=== PATIENT | female | born 1960 | race Caucasian/White ===

== ENCOUNTER 2018-03-09 10:57 | Outpatient (CLI) | payer OTHER ==
--- NOTE | 2018-03-09 13:22 | BD ---
BONE DENSITOMETRY USING DEXA: HISTORY: Postmenopausal screening for osteoporosis. FINDINGS: Lumbar Spine: BMD (g/cm2) L1 0.914 T-Score: -0.7 Z-Score: 0.5 L2 0.972 T-Score: -0.5 Z-Score: 0.8 L3 0.941 T-Score: -1.3 Z-Score: 0.0 L4 0.916 T-Score: -1.3 Z-Score: 0.1 L1-L4 0.936 T-Score: -1.0 Z-Score: 0.3 Femoral Neck: 0.606 T-Score: -2.2 Z-Score: -1.0 Total Femur: 0.744 T-Score: -1.6 Z-Score: -0.8 Impression: Osteopenia. POS: [facility]
== END 2018-03-09 10:58 | disposition home or self-care (01) ==
LOC: BICMAMMO 10:57
PROVIDERS: ATTEND Internal Medicine Hematology & Oncology
DX: M81.0 Age-related osteoporosis without current pathological fracture (principal); M85.89 Other specified disorders of bone density and structure, multiple sites
CPT/HCPCS: 77080

== ENCOUNTER 2019-03-23 09:47 | Outpatient (CLI) | payer OTHER ==
--- NOTE | 2019-03-23 11:15 | BD ---
EXAM: DEXA bone density examination HISTORY: Osteoporosis without recurrent pathological fracture COMPARISON: March 09, 2018 FINDINGS: L1--bone mineral density 0.815 g/sq cm; T score -1.6. Z score -0.4 L2--bone mineral density 0.845 g/sq cm; T score -1.7; Z score -0.3 L3--bone mineral density 0.839 g/sq cm; T score -2.2; Z score -0.8 L4--bone mineral density 0.822 g/sq cm; T score -2.2, Z score -0.7 Total L1-L4--bone mineral density 0.831 g/sq cm; T score -2.0, Z score -0.6 Left femoral neck--bone mineral density0.589; T score -2.3, Z score -1.1 Total proximal left femur--bone mineral density 0.766; T score -1.4, Z score -0.5 This patient has a 10 year WHO fracture risk of a major osteoporotic fracture of 9.4% and of a hip fr acture of 1.5%. IMPRESSION: Based on the WHO criteria, the patient's bone mineral density is consideredOsteopenic. T he patient is at moderate risk for fracture. The patient's bone mineral density has declined 11.2% from the baseline exam dated March 09, 2018. This is denoted as being in statistically significant .
== END 2019-03-23 09:48 | disposition home or self-care (01) ==
LOC: BICMAMMO 09:47
PROVIDERS: ATTEND Internal Medicine Hematology & Oncology
DX: M81.8 Other osteoporosis without current pathological fracture (principal); C50.112 Malignant neoplasm of central portion of left female breast; M85.80 Other specified disorders of bone density and structure, unspecified site
CPT/HCPCS: 77080

== ENCOUNTER 2022-06-28 13:33 | Outpatient (CLI) | payer OTHER | END 2022-06-28 13:34 | disposition home or self-care (01) | LOC: SCSRAD 13:33 | PROVIDERS: ATTEND Family Medicine | DX: R06.02 Shortness of breath (principal) | CPT/HCPCS: 71046 ==

== ENCOUNTER 2022-07-22 12:26 | Outpatient (CLI) | payer OTHER ==
[~2022-07-22 12:26] MED LIST: Iopamidol 370 76% 100 ML VIAL ONE
== END 2022-07-22 12:27 | disposition home or self-care (01) ==
LOC: CT 12:26
PROVIDERS: ATTEND Internal Medicine Hematology & Oncology
DX: C50.919 Malignant neoplasm of unspecified site of unspecified female breast (principal); C78.00 Secondary malignant neoplasm of unspecified lung; C79.51 Secondary malignant neoplasm of bone; C78.7 Secondary malignant neoplasm of liver and intrahepatic bile duct; C77.1 Secondary and unspecified malignant neoplasm of intrathoracic lymph nodes
CPT/HCPCS: 70470

== ENCOUNTER 2022-07-23 13:33 | Outpatient (CLI) | payer OTHER | END 2022-07-23 13:34 | disposition home or self-care (01) | LOC: SCSMRI 13:33 | PROVIDERS: ATTEND Internal Medicine Hematology & Oncology | DX: C79.51 Secondary malignant neoplasm of bone (principal); C78.00 Secondary malignant neoplasm of unspecified lung; C50.112 Malignant neoplasm of central portion of left female breast; C78.7 Secondary malignant neoplasm of liver and intrahepatic bile duct; M81.8 Other osteoporosis without current pathological fracture; R30.0 Dysuria; M89.9 Disorder of bone, unspecified | CPT/HCPCS: 72157 ==

== ENCOUNTER 2022-07-24 08:13 | Day surgery (SDC) | payer OTHER ==
[2022-07-24 08:41] LABS: INR-International Normal Ratio 0.9; PTT 29.2 sec (22.9-36.1); Prothrombin Time 12.7 sec (12.0-14.7)
[2022-07-24 09:09] VITALS: BP 150/101; TEMP 97.9
== END 2022-07-24 13:32 | disposition home or self-care (01) ==
LOC: CT 08:13
PROVIDERS: ATTEND Internal Medicine Hematology & Oncology
PROC: 0FB23ZX Excision of Left Lobe Liver, Percutaneous Approach, Diagnostic (ICD-10-PCS; principal; 2022-07-24)
DX: C78.7 Secondary malignant neoplasm of liver and intrahepatic bile duct (principal); C77.1 Secondary and unspecified malignant neoplasm of intrathoracic lymph nodes; C78.02 Secondary malignant neoplasm of left lung; C78.01 Secondary malignant neoplasm of right lung; C79.51 Secondary malignant neoplasm of bone; I10 Essential (primary) hypertension; Z90.12 Acquired absence of left breast and nipple; Z85.3 Personal history of malignant neoplasm of breast; Z92.21 Personal history of antineoplastic chemotherapy; Z92.3 Personal history of irradiation; Z88.8 Allergy status to other drugs, medicaments and biological substances; Z79.899 Other long term (current) drug therapy
CPT/HCPCS: 47000; 77002; 85610; 85730; 88307; 88333; 88341; 88342

== ENCOUNTER 2022-07-29 08:46 | Outpatient (CLI) | payer OTHER ==
[~2022-07-29 08:46] MED LIST changes: +FENTANYL 50 MCG/ML 1 ML VIAL ONE; -Iopamidol 370 76% 100 ML VIAL ONE; +Midazolam HCl 2 mg/2 ml Vial ONE; +Sodium Bicarbonate 2.5 MEQ/5 ML VIAL ONE
== END 2022-07-29 08:47 | disposition home or self-care (01) ==
LOC: NM 08:46
PROVIDERS: ATTEND Internal Medicine Hematology & Oncology
DX: C50.112 Malignant neoplasm of central portion of left female breast (principal); C78.00 Secondary malignant neoplasm of unspecified lung; C79.51 Secondary malignant neoplasm of bone; C22.9 Malignant neoplasm of liver, not specified as primary or secondary; R30.0 Dysuria; M81.8 Other osteoporosis without current pathological fracture
CPT/HCPCS: 78306; A9503

== ENCOUNTER 2022-11-29 08:00 | Outpatient (CLI) | payer OTHER | END 2022-11-29 08:01 | disposition home or self-care (01) | LOC: PET 08:00 | PROVIDERS: ATTEND Internal Medicine Hematology & Oncology | DX: C50.112 Malignant neoplasm of central portion of left female breast (principal); C79.51 Secondary malignant neoplasm of bone | CPT/HCPCS: 78815; A9552 ==

== ENCOUNTER → 2023-05-23 | Outpatient (CLI) | payer OTHER | LOC: PET 08:00 | PROVIDERS: ATTEND Internal Medicine Hematology & Oncology | DX: C50.112 Malignant neoplasm of central portion of left female breast (principal); C79.51 Secondary malignant neoplasm of bone; C78.7 Secondary malignant neoplasm of liver and intrahepatic bile duct | CPT/HCPCS: 78815; A9552 ==

== ENCOUNTER 2023-11-18 08:00 | Outpatient (CLI) | payer OTHER | END 2023-11-18 08:01 | LOC: PET 08:00 | PROVIDERS: ATTEND Internal Medicine Hematology & Oncology | DX: C50.112 Malignant neoplasm of central portion of left female breast (principal); C79.51 Secondary malignant neoplasm of bone; K76.9 Liver disease, unspecified | CPT/HCPCS: 78815; A9552 ==

== ENCOUNTER 2024-05-04 11:45 | Outpatient (CLI) | payer OTHER | END 2024-05-04 11:46 | disposition home or self-care (01) | LOC: PET 11:45 | PROVIDERS: ATTEND Internal Medicine Hematology & Oncology | DX: C50.112 Malignant neoplasm of central portion of left female breast (principal); M81.8 Other osteoporosis without current pathological fracture; R30.0 Dysuria; C79.51 Secondary malignant neoplasm of bone; D70.1 Agranulocytosis secondary to cancer chemotherapy; T45.1X5A Adverse effect of antineoplastic and immunosuppressive drugs, initial encounter; D70.8 Other neutropenia | CPT/HCPCS: 78815; A9552 ==

== ENCOUNTER 2024-08-19 09:21 | Outpatient (CLI) | payer OTHER | END 2024-08-19 09:22 | disposition home or self-care (01) | LOC: MRI 09:21 | PROVIDERS: ATTEND Physician Assistant Medical | DX: R74.8 Abnormal levels of other serum enzymes (principal); K74.60 Unspecified cirrhosis of liver; R16.0 Hepatomegaly, not elsewhere classified; R18.8 Other ascites; R93.2 Abnormal findings on diagnostic imaging of liver and biliary tract; K76.89 Other specified diseases of liver | CPT/HCPCS: 74183; 76376 ==

== ENCOUNTER → 2024-11-24 | Day surgery (SDC) | payer MEDICARE, OTHER ==
[~2024-11-24] MED LIST changes: -FENTANYL 50 MCG/ML 1 ML VIAL ONE; +Lidocaine 1% PF 5 ML VIAL ONE; +Lidocaine-Prilocaine 2.5% Cream 5 GM TUBE TOP SCH; -Midazolam HCl 2 mg/2 ml Vial ONE; -Sodium Bicarbonate 2.5 MEQ/5 ML VIAL ONE
[2024-11-24 13:31] LABS: Anion Gap 14 mmol/L (10-20); BUN (Urea Nitrogen) 41 mg/dL (9.8-20.1); Calc. Creatinine Clearance 0 mL/min (70-130); Calcium 8.9 mg/dL (7.8-10.44); Carbon Dioxide 20 mmol/L (23-31); Chloride 98 mmol/L (98-107); Glucose 198 mg/dL (80-115); Potassium 5.1 mmol/L (3.5-5.1); Sodium 127 mmol/L (136-145)
[2024-11-24 13:33] LABS: #Basophils Less than 0.03 10x3/uL (0.0-0.2); #Eosinophils Less than 0.03 10x3/uL (0.0-0.7); #Monocytes 0.88 10x3/uL (0.11-0.59); #Neutrophils 10.42 10x3/uL (1.40-6.50); %Basophils 0.1 % (0.0-1.0); %Eosinophils 0.0 % (0.0-10.0); %Lymphocytes 2.5 % (21.0-51.0); %Monocytes 7.5 % (0.0-10.0); %Neutrophils 89.3 % (42.0-75.0); Hematocrit 26.9 % (36.0-47.0); Hemoglobin 8.9 g/dL (12.0-16.0); Mean Corpuscular Hemoglobin 37.4 pg (27.0-31.0); Mean Corpuscular Volume 113.0 fL (78.0-98.0); Platelet Count 165 10x3/uL (130-400); Red Blood Cell (RBC) Count 2.38 mill/uL (4.20-5.40); White Blood Cell (WBC) Count 11.67 10x3/uL (4.8-10.8)
[2024-11-24 13:35] LABS: INR-International Normal Ratio 1.1; PTT 32.7 sec (22.9-36.1); Prothrombin Time 14.3 sec (12.0-14.7)
[2024-11-24 14:04] LABS: Anisocytosis SLIGHT = 6-15 cells HPF (0-5); Macrocytosis MODERATE=16-30 cells HPF (0-5); Platelet Adequacy Comment Platelets Normal; Polychromasia SLIGHT = 2-3 cells HPF (0-2); Schistocytes SLIGHT = 2-5 cells HPF (0-1)
[2024-11-24] MEDS: Albumin 25% 25 GM (100 mL) BOT IVPB SCH (15:00)
[2024-11-24 16:08] VITALS: BP 84/47
[2024-11-24 17:58] LABS: RBC Count-Automated (BF) 20 /cu.mm; WBC/Nucleated-Auto (BF) 59 /cu.mm
[2024-11-24 18:09] LABS: BF Segmented Neutrophils 4 %; Cell Count Non Hematic 95 %
== END ==
LOC: ULT 12:50
PROVIDERS: ATTEND Internal Medicine Hematology & Oncology
PROC: 0W9G3ZZ Drainage of Peritoneal Cavity, Percutaneous Approach (ICD-10-PCS; principal; 2024-11-24)
DX: K74.60 Unspecified cirrhosis of liver (principal); R18.8 Other ascites; E87.1 Hypo-osmolality and hyponatremia; Z85.3 Personal history of malignant neoplasm of breast; Z90.10 Acquired absence of unspecified breast and nipple
CPT/HCPCS: 49083; 80048; 82042; 84157; 85025; 85610; 85730; 87070; 87205; 89051; P9047; 36415; 85060

== ENCOUNTER 2024-11-27 21:20 | Emergency (ER) | payer MEDICARE, OTHER ==
[2024-11-27 22:32] LABS: Hematocrit 28.3 % (36.0-47.0); Hemoglobin 9.1 g/dL (12.0-16.0); Mean Corpuscular Hemoglobin 37.1 pg (27.0-31.0); Mean Corpuscular Volume 115.5 fL (78.0-98.0); Platelet Count 163 10x3/uL (130-400); Red Blood Cell (RBC) Count 2.45 mill/uL (4.20-5.40); White Blood Cell (WBC) Count 32.74 10x3/uL (4.8-10.8)
[2024-11-27] MEDS ORDERED: Lidocaine 1% (PF) 30 ML VIAL ONE (22:36)
[2024-11-27 22:37] LABS: INR-International Normal Ratio 1.3; Prothrombin Time 16.2 sec (12.0-14.7)
[2024-11-27 22:38] LABS: PTT 28.2 sec (22.9-36.1)
[2024-11-27 22:41] LABS: ALT (SGPT) 62 U/L (Less than 34); AST (SGOT) 49 U/L (11-34); Albumin 2.7 g/dL (3.1-4.5); Alkaline Phosphatase 613 U/L (40-110); Anion Gap 14 mmol/L (10-20); BUN (Urea Nitrogen) 39 mg/dL (9.8-20.1); Bilirubin, Total 4.1 mg/dL (0.3-1.2); CK (CPK) 35 U/L (29-168); Calc. Creatinine Clearance 0 mL/min (70-130); Calcium 8.2 mg/dL (7.8-10.44); Carbon Dioxide 17 mmol/L (23-31); Chloride 99 mmol/L (98-107); Globulin 2.9 g/dL (2.4-3.5); Glucose 149 mg/dL (80-115); Lipase 122 U/L (8-78); Potassium 5.1 mmol/L (3.5-5.1); Sodium 125 mmol/L (136-145)
[2024-11-27 22:56] LABS: Anisocytosis SLIGHT = 6-15 cells HPF (0-5); Macrocytosis SLIGHT = 6-15 cells HPF (0-5); Platelet Adequacy Comment Platelets Normal; Polychromasia SLIGHT = 2-3 cells HPF (0-2)
[2024-11-27 23:09] LABS: Troponin I Less than 0.010 ng/mL (< 0.028)
[2024-11-27 23:40] LABS: RBC Count-Automated (BF) 591 /cu.mm; WBC/Nucleated-Auto (BF) 5841 /cu.mm
[2024-11-27 23:48] LABS: Actual Bicarbonate (HCO3v) 17.7 mEq/L (22-28); Base Excess -6.5 mEq/L (-2.0 to +3.0); Calcium, Ionized (venous) 1.08 mmol/L (1.16-1.32); Chloride (VBG) 96 mmol/L (98-106); Hematocrit-VBG 29 % (36.0-47.0); Hemoglobin (Hb) 9.9 g/dL (11.7-16.1); Potassium (VBG) 4.85 mmol/L (3.70-5.30); Sodium 125 mmol/L (133-146)
[2024-11-28 00:59] LABS: BF Segmented Neutrophils 81 %; Cell Count Non Hematic 19 %
== END 2024-11-28 01:30 | disposition home or self-care (01) ==
LOC: ERS 21:20
DX: R10.9 Unspecified abdominal pain (principal); R18.8 Other ascites; C50.919 Malignant neoplasm of unspecified site of unspecified female breast; Z55.6 Problems related to health literacy
CPT/HCPCS: 36415; 49083; 71045; 80053; 82042; 82140; 82550; 82805; 82945; 83605; 83615; 83690; 84157; 84484; 85025; 85060; 85610; 85730; 86850; 86870; 86900; 86901; 87040; 87070; 87205; 89051; 93005

== ENCOUNTER → 2024-12-01 | Day surgery (SDC) | payer MEDICARE, OTHER ==
[~2024-12-01] MED LIST changes: -Lidocaine 1% PF 5 ML VIAL ONE; +Lidocaine 1% w/Epinephrine 1:100K 20 ML VIAL ONE; -Lidocaine-Prilocaine 2.5% Cream 5 GM TUBE TOP SCH; +Sodium Bicarbonate 2.5 MEQ/5 ML SDV ONE
[2024-12-01 11:39] LABS: Anion Gap 13 mmol/L (10-20); BUN (Urea Nitrogen) 57 mg/dL (9.8-20.1); Calc. Creatinine Clearance 0 mL/min (70-130); Calcium 8.1 mg/dL (7.8-10.44); Carbon Dioxide 19 mmol/L (23-31); Chloride 98 mmol/L (98-107); Glucose 154 mg/dL (80-115); Potassium 5.6 mmol/L (3.5-5.1); Sodium 124 mmol/L (136-145)
== END ==
LOC: ULT 11:01
PROVIDERS: ATTEND Internal Medicine Hematology & Oncology
PROC: 0W9G3ZZ Drainage of Peritoneal Cavity, Percutaneous Approach (ICD-10-PCS; principal; 2024-12-01)
DX: K74.60 Unspecified cirrhosis of liver (principal); R18.8 Other ascites; I10 Essential (primary) hypertension; E87.1 Hypo-osmolality and hyponatremia; Z85.3 Personal history of malignant neoplasm of breast; Z90.12 Acquired absence of left breast and nipple
CPT/HCPCS: 36000; 49083; 80048; P9047; 36415; 83615; 85060; 89051

== ENCOUNTER 2024-12-06 14:08 | Day surgery (SDC) | payer MEDICARE, OTHER ==
[2024-12-06] MEDS ORDERED: Sodium Bicarbonate 2.5 MEQ/5 ML SDV ONE (14:51)
[2024-12-06] MEDS ORDERED: Lidocaine 1% PF 5 ML VIAL ONE (14:51)
[2024-12-06 16:39] LABS: Anion Gap 13 mmol/L (10-20); BUN (Urea Nitrogen) 45 mg/dL (9.8-20.1); Calc. Creatinine Clearance 0 mL/min (70-130); Calcium 7.9 mg/dL (7.8-10.44); Carbon Dioxide 19 mmol/L (23-31); Chloride 95 mmol/L (98-107); Glucose 144 mg/dL (80-115); Potassium 6.4 mmol/L (3.5-5.1); Sodium 121 mmol/L (136-145)
[2024-12-06 20:10] LABS: RBC Count-Automated (BF) 225 /cu.mm; WBC/Nucleated-Auto (BF) 39 /cu.mm
[2024-12-06 20:42] LABS: BF Segmented Neutrophils 55 %; Cell Count Non Hematic 37 %
== END 2024-12-06 18:10 | disposition home or self-care (01) ==
LOC: ULT 14:08
PROVIDERS: ATTEND Internal Medicine Hematology & Oncology
PROC: 0W9G3ZZ Drainage of Peritoneal Cavity, Percutaneous Approach (ICD-10-PCS; principal; 2024-12-06)
DX: K74.60 Unspecified cirrhosis of liver (principal); R18.8 Other ascites; C50.112 Malignant neoplasm of central portion of left female breast; C79.51 Secondary malignant neoplasm of bone; M81.8 Other osteoporosis without current pathological fracture; D70.1 Agranulocytosis secondary to cancer chemotherapy; D70.8 Other neutropenia; I10 Essential (primary) hypertension; Z17.0 Estrogen receptor positive status [ER+]; Z17.21 Progesterone receptor positive status; Z17.31 Human epidermal growth factor receptor 2 positive status; Z79.899 Other long term (current) drug therapy
CPT/HCPCS: 49083; 80048; 89051; P9047; 85060

== ENCOUNTER 2024-12-07 09:05 | Inpatient (IN) | payer MEDICARE, OTHER ==
[2024-12-07 10:36] LABS: #Basophils Less than 0.03 10x3/uL (0.0-0.2); #Eosinophils 0.03 10x3/uL (0.0-0.7); #Monocytes 1.05 10x3/uL (0.11-0.59); #Neutrophils 7.26 10x3/uL (1.40-6.50); %Basophils 0.2 % (0.0-1.0); %Eosinophils 0.3 % (0.0-10.0); %Lymphocytes 6.9 % (21.0-51.0); %Monocytes 11.5 % (0.0-10.0); %Neutrophils 79.6 % (42.0-75.0)
[2024-12-07 10:39] LABS: Hematocrit 18.0 % (36.0-47.0); Hemoglobin 5.9 g/dL (12.0-16.0); Mean Corpuscular Hemoglobin 37.3 pg (27.0-31.0); Mean Corpuscular Volume 113.9 fL (78.0-98.0); Platelet Count 252 10x3/uL (130-400); Red Blood Cell (RBC) Count 1.58 mill/uL (4.20-5.40); White Blood Cell (WBC) Count 9.13 10x3/uL (4.8-10.8)
[2024-12-07 10:42] LABS: INR-International Normal Ratio 1.2; Prothrombin Time 15.8 sec (12.0-14.7)
[2024-12-07 10:53] LABS: ALT (SGPT) 113 U/L (Less than 34); AST (SGOT) 127 U/L (11-34); Albumin 2.8 g/dL (3.1-4.5); Alkaline Phosphatase 1242 U/L (40-110); Anion Gap 11 mmol/L (10-20); BUN (Urea Nitrogen) 47 mg/dL (9.8-20.1); Bilirubin, Total 7.0 mg/dL (0.3-1.2); Calc. Creatinine Clearance 0 mL/min (70-130); Calcium 7.9 mg/dL (7.8-10.44); Carbon Dioxide 20 mmol/L (23-31); Chloride 95 mmol/L (98-107); Globulin 2.3 g/dL (2.4-3.5); Glucose 162 mg/dL (80-115); Magnesium 2.9 mg/dL (1.6-2.6); Potassium 5.3 mmol/L (3.5-5.1); Sodium 121 mmol/L (136-145)
[2024-12-07 11:49] LABS: Macrocytosis SLIGHT = 6-15 cells (100X) (0-5/hpf); Plasma Cells 0 % (0-0); Platelet Adequacy Comment Appears Adequate
[2024-12-07 14:48] VITALS: BMI 19.8
[2024-12-07] MEDS ORDERED: Acetaminophen 325 MG TAB PO PRN (15:16)
[2024-12-07] MEDS ORDERED: Melatonin 3 MG TAB PO PRN (15:16)
[2024-12-07] MEDS ORDERED: Ondansetron PF 4 MG/2 ML Vial IVP PRN (15:16)
[2024-12-07] MEDS ORDERED: Senokot S 8.6-50 MG TAB PO PRN (15:16)
[2024-12-07 16:12] LABS: Osmolality, Serum 275 mOsm/kg (280-301)
[2024-12-07] MEDS: Furosemide 20 MG TAB PO SCH (16:27)
[2024-12-07 16:34] LABS: #Basophils Less than 0.03 10x3/uL (0.0-0.2); #Eosinophils 0.06 10x3/uL (0.0-0.7); #Monocytes 1.15 10x3/uL (0.11-0.59); #Neutrophils 7.03 10x3/uL (1.40-6.50); %Basophils 0.2 % (0.0-1.0); %Eosinophils 0.6 % (0.0-10.0); %Lymphocytes 9.8 % (21.0-51.0); %Monocytes 12.4 % (0.0-10.0); %Neutrophils 75.5 % (42.0-75.0); Hematocrit 22.3 % (36.0-47.0); Hemoglobin 7.3 g/dL (12.0-16.0); Mean Corpuscular Hemoglobin 34.4 pg (27.0-31.0); Mean Corpuscular Volume 105.2 fL (78.0-98.0); Platelet Count 229 10x3/uL (130-400); Red Blood Cell (RBC) Count 2.12 mill/uL (4.20-5.40); White Blood Cell (WBC) Count 9.31 10x3/uL (4.8-10.8)
[2024-12-07 16:54] LABS: Anion Gap 11 mmol/L (10-20); BUN (Urea Nitrogen) 46 mg/dL (9.8-20.1); Calc. Creatinine Clearance 42 mL/min (70-130); Calcium 7.9 mg/dL (7.8-10.44); Carbon Dioxide 19 mmol/L (23-31); Chloride 98 mmol/L (98-107); Glucose 160 mg/dL (80-115); Potassium 5.7 mmol/L (3.5-5.1); Sodium 122 mmol/L (136-145)
[2024-12-07 17:07] LABS: Anisocytosis MODERATE=16-30 cells HPF (0-5); Macrocytosis SLIGHT = 6-15 cells HPF (0-5); Ovalocytes SLIGHT = 2-5 cells HPF (0-1); Platelet Adequacy Comment Platelets Normal; Polychromasia SLIGHT = 2-3 cells HPF (0-2); Schistocytes SLIGHT = 2-5 cells HPF (0-1); Smudge Cells 4.0 %; Toxic Granulation MODERATE
[2024-12-07] MEDS: LOKELMA 10 GM PACKET PO SCH (18:54)
[2024-12-07 21:51] LABS: Hematocrit 26.5 % (36.0-47.0); Hemoglobin 8.8 g/dL (12.0-16.0)
[2024-12-07 22:04] LABS: Sodium 122 mmol/L (136-145)
[2024-12-08] MEDS: Sodium Bicarbonate Tab 325 MG TAB PO SCH (00:02)
[2024-12-08 05:29] LABS: #Basophils 0.03 10x3/uL (0.0-0.2); #Eosinophils 0.05 10x3/uL (0.0-0.7); #Monocytes 1.14 10x3/uL (0.11-0.59); #Neutrophils 6.56 10x3/uL (1.40-6.50); %Basophils 0.3 % (0.0-1.0); %Eosinophils 0.6 % (0.0-10.0); %Lymphocytes 8.6 % (21.0-51.0); %Monocytes 13.0 % (0.0-10.0); %Neutrophils 74.9 % (42.0-75.0); Hematocrit 26.7 % (36.0-47.0); Hemoglobin 8.9 g/dL (12.0-16.0); Mean Corpuscular Hemoglobin 33.1 pg (27.0-31.0); Mean Corpuscular Volume 99.3 fL (78.0-98.0); Platelet Count 196 10x3/uL (130-400); Red Blood Cell (RBC) Count 2.69 mill/uL (4.20-5.40); White Blood Cell (WBC) Count 8.76 10x3/uL (4.8-10.8)
[2024-12-08 05:50] LABS: Anion Gap 11 mmol/L (10-20); BUN (Urea Nitrogen) 46 mg/dL (9.8-20.1); Calc. Creatinine Clearance 56 mL/min (70-130); Calcium 7.8 mg/dL (7.8-10.44); Carbon Dioxide 19 mmol/L (23-31); Chloride 97 mmol/L (98-107); Glucose 136 mg/dL (80-115); Potassium 4.9 mmol/L (3.5-5.1); Sodium 122 mmol/L (136-145)
[2024-12-08] MEDS: Albumin 25% 25 GM (100 mL) BOT IVPB SCH (09:10)
[2024-12-08 10:48] LABS: Hematocrit 25.1 % (36.0-47.0); Hemoglobin 8.5 g/dL (12.0-16.0)
[2024-12-08 11:00] LABS: Sodium 122 mmol/L (136-145)
[2024-12-08] MEDS ORDERED: cefTRIAXone Sodium 2,000 MG in Syringe 0 ML IVPB SCH (11:15)
[2024-12-08 13:15] LABS: Osmolality, Urine 583 mOsm/kg (50-1200)
[2024-12-08] MEDS: cefTRIAXone\\ROCEPHIN 2 GM in Sodium Chloride 0.9% 100 ML IVPB SCH (15:04)
[2024-12-08 15:29] LABS: Hematocrit 26.2 % (36.0-47.0); Hemoglobin 8.9 g/dL (12.0-16.0)
[2024-12-08 15:46] LABS: Sodium 123 mmol/L (136-145)
[2024-12-08 23:14] LABS: Hematocrit 23.6 % (36.0-47.0); Hemoglobin 8.0 g/dL (12.0-16.0)
[2024-12-08 23:30] LABS: Sodium 126 mmol/L (136-145)
[2024-12-09 05:27] LABS: #Basophils Less than 0.03 10x3/uL (0.0-0.2); #Eosinophils 0.07 10x3/uL (0.0-0.7); #Monocytes 0.66 10x3/uL (0.11-0.59); #Neutrophils 5.06 10x3/uL (1.40-6.50); %Basophils 0.2 % (0.0-1.0); %Eosinophils 1.1 % (0.0-10.0); %Lymphocytes 10.4 % (21.0-51.0); %Monocytes 10.0 % (0.0-10.0); %Neutrophils 76.9 % (42.0-75.0); Hematocrit 23.9 % (36.0-47.0); Hemoglobin 8.1 g/dL (12.0-16.0); Mean Corpuscular Hemoglobin 34.3 pg (27.0-31.0); Mean Corpuscular Volume 101.3 fL (78.0-98.0); Platelet Count 149 10x3/uL (130-400); Red Blood Cell (RBC) Count 2.36 mill/uL (4.20-5.40); White Blood Cell (WBC) Count 6.57 10x3/uL (4.8-10.8)
[2024-12-09 05:50] LABS: ALT (SGPT) 97 U/L (Less than 34); AST (SGOT) 84 U/L (11-34); Albumin 3.2 g/dL (3.1-4.5); Alkaline Phosphatase 928 U/L (40-110); Anion Gap 13 mmol/L (10-20); BUN (Urea Nitrogen) 38 mg/dL (9.8-20.1); Bilirubin, Total 6.6 mg/dL (0.3-1.2); Calc. Creatinine Clearance 61 mL/min (70-130); Calcium 7.8 mg/dL (7.8-10.44); Carbon Dioxide 19 mmol/L (23-31); Chloride 99 mmol/L (98-107); Globulin 1.8 g/dL (2.4-3.5); Glucose 183 mg/dL (80-115); Potassium 4.5 mmol/L (3.5-5.1); Sodium 126 mmol/L (136-145)
[2024-12-09] MEDS ORDERED: Sodium Bicarbonate 2.5 MEQ/5 ML SDV ONE (10:36)
[2024-12-09 15:07] LABS: RBC Count-Automated (BF) 78 /cu.mm; WBC/Nucleated-Auto (BF) 88 /cu.mm
[2024-12-09 17:28] LABS: BF Segmented Neutrophils 39 %; Cell Count Non Hematic 50 %
[2024-12-10 04:56] LABS: #Basophils 0.03 10x3/uL (0.0-0.2); #Eosinophils 0.04 10x3/uL (0.0-0.7); #Monocytes 1.05 10x3/uL (0.11-0.59); #Neutrophils 6.34 10x3/uL (1.40-6.50); %Basophils 0.4 % (0.0-1.0); %Eosinophils 0.5 % (0.0-10.0); %Lymphocytes 7.4 % (21.0-51.0); %Monocytes 12.8 % (0.0-10.0); %Neutrophils 77.1 % (42.0-75.0); Hematocrit 25.1 % (36.0-47.0); Hemoglobin 8.6 g/dL (12.0-16.0); Mean Corpuscular Hemoglobin 35.4 pg (27.0-31.0); Mean Corpuscular Volume 103.3 fL (78.0-98.0); Platelet Count 149 10x3/uL (130-400); Red Blood Cell (RBC) Count 2.43 mill/uL (4.20-5.40); White Blood Cell (WBC) Count 8.22 10x3/uL (4.8-10.8)
[2024-12-10 05:12] LABS: ALT (SGPT) 91 U/L (Less than 34); AST (SGOT) 91 U/L (11-34); Albumin 3.0 g/dL (3.1-4.5); Alkaline Phosphatase 908 U/L (40-110); Anion Gap 14 mmol/L (10-20); BUN (Urea Nitrogen) 36 mg/dL (9.8-20.1); Bilirubin, Total 5.1 mg/dL (0.3-1.2); Calc. Creatinine Clearance 62 mL/min (70-130); Calcium 7.8 mg/dL (7.8-10.44); Carbon Dioxide 18 mmol/L (23-31); Chloride 102 mmol/L (98-107); Globulin 1.7 g/dL (2.4-3.5); Glucose 128 mg/dL (80-115); Potassium 4.6 mmol/L (3.5-5.1); Sodium 129 mmol/L (136-145)
[2024-12-10] MEDS: cefTRIAXone\\ROCEPHIN 2 GM in Sodium Chloride 0.9% 100 ML IVPB SCH (15:03)
[2024-12-11 04:54] LABS: #Basophils 0.03 10x3/uL (0.0-0.2); #Eosinophils 0.07 10x3/uL (0.0-0.7); #Monocytes 1.16 10x3/uL (0.11-0.59); #Neutrophils 7.94 10x3/uL (1.40-6.50); %Basophils 0.3 % (0.0-1.0); %Eosinophils 0.7 % (0.0-10.0); %Lymphocytes 6.4 % (21.0-51.0); %Monocytes 11.6 % (0.0-10.0); %Neutrophils 79.8 % (42.0-75.0); Hematocrit 26.3 % (36.0-47.0); Hemoglobin 8.5 g/dL (12.0-16.0); Mean Corpuscular Hemoglobin 34.3 pg (27.0-31.0); Mean Corpuscular Volume 106.0 fL (78.0-98.0); Platelet Count 144 10x3/uL (130-400); Red Blood Cell (RBC) Count 2.48 mill/uL (4.20-5.40); White Blood Cell (WBC) Count 9.96 10x3/uL (4.8-10.8)
[2024-12-11 05:15] LABS: ALT (SGPT) 87 U/L (Less than 34); AST (SGOT) 75 U/L (11-34); Albumin 2.8 g/dL (3.1-4.5); Alkaline Phosphatase 886 U/L (40-110); Anion Gap 8 mmol/L (10-20); BUN (Urea Nitrogen) 36 mg/dL (9.8-20.1); Bilirubin, Total 4.7 mg/dL (0.3-1.2); Calc. Creatinine Clearance 68 mL/min (70-130); Calcium 7.7 mg/dL (7.8-10.44); Carbon Dioxide 21 mmol/L (23-31); Chloride 98 mmol/L (98-107); Globulin 1.9 g/dL (2.4-3.5); Glucose 160 mg/dL (80-115); Potassium 5.3 mmol/L (3.5-5.1); Sodium 122 mmol/L (136-145)
[2024-12-11] MEDS: Furosemide 40 MG TAB PO SCH (15:48)
[2024-12-11] MEDS: Albumin 25% 25 GM (100 mL) BOT IVPB SCH (17:25)
[2024-12-11] MEDS: Heparin 5,000 UNITS/ML VIAL SC SCH (22:09)
[2024-12-12 05:54] LABS: #Basophils 0.03 10x3/uL (0.0-0.2); #Eosinophils 0.09 10x3/uL (0.0-0.7); #Monocytes 0.97 10x3/uL (0.11-0.59); #Neutrophils 6.35 10x3/uL (1.40-6.50); %Basophils 0.4 % (0.0-1.0); %Eosinophils 1.1 % (0.0-10.0); %Lymphocytes 7.8 % (21.0-51.0); %Monocytes 11.9 % (0.0-10.0); %Neutrophils 77.6 % (42.0-75.0); Hematocrit 23.0 % (36.0-47.0); Hemoglobin 7.5 g/dL (12.0-16.0); Mean Corpuscular Hemoglobin 35.0 pg (27.0-31.0); Mean Corpuscular Volume 107.5 fL (78.0-98.0); Platelet Count 129 10x3/uL (130-400); Red Blood Cell (RBC) Count 2.14 mill/uL (4.20-5.40); White Blood Cell (WBC) Count 8.18 10x3/uL (4.8-10.8)
[2024-12-12 05:56] LABS: ALT (SGPT) 72 U/L (Less than 34); AST (SGOT) 63 U/L (11-34); Albumin 3.3 g/dL (3.1-4.5); Alkaline Phosphatase 719 U/L (40-110); Anion Gap 12 mmol/L (10-20); BUN (Urea Nitrogen) 32 mg/dL (9.8-20.1); Bilirubin, Total 4.5 mg/dL (0.3-1.2); Calc. Creatinine Clearance 77 mL/min (70-130); Calcium 7.6 mg/dL (7.8-10.44); Carbon Dioxide 19 mmol/L (23-31); Chloride 101 mmol/L (98-107); Globulin 1.5 g/dL (2.4-3.5); Glucose 152 mg/dL (80-115); Potassium 4.9 mmol/L (3.5-5.1); Sodium 127 mmol/L (136-145)
[2024-12-12 06:24] LABS: Macrocytosis SLIGHT = 6-15 cells HPF (0-5); Nucleated RBC (Manual Ct) 1 % (0); Platelet Adequacy Comment Platelets Decreased; Smudge Cells 2.8 %
[2024-12-12] MEDS ORDERED: Furosemide 40 MG TAB PO SCH (07:30)
[2024-12-12] MEDS: Pantoprazole 40 MG DR.TAB PO SCH (08:51)
[2024-12-12] MEDS: Sodium Ferric Gluconate 250 MG in Sodium Chloride 0.9% 250 ML 250 ML IVPB SCH (16:20)
[2024-12-12] MEDS: Albumin 25% 25 GM (100 mL) BOT IVPB SCH ×2 (19:28→23:32)
[2024-12-13 05:59] LABS: #Basophils 0.03 10x3/uL (0.0-0.2); #Eosinophils 0.06 10x3/uL (0.0-0.7); #Monocytes 0.79 10x3/uL (0.11-0.59); #Neutrophils 5.96 10x3/uL (1.40-6.50); %Basophils 0.4 % (0.0-1.0); %Eosinophils 0.8 % (0.0-10.0); %Lymphocytes 5.9 % (21.0-51.0); %Monocytes 10.8 % (0.0-10.0); %Neutrophils 81.3 % (42.0-75.0); Hematocrit 23.2 % (36.0-47.0); Hemoglobin 7.7 g/dL (12.0-16.0); Mean Corpuscular Hemoglobin 36.0 pg (27.0-31.0); Mean Corpuscular Volume 108.4 fL (78.0-98.0); Platelet Count 108 10x3/uL (130-400); Red Blood Cell (RBC) Count 2.14 mill/uL (4.20-5.40); White Blood Cell (WBC) Count 7.33 10x3/uL (4.8-10.8)
[2024-12-13 06:23] LABS: Anion Gap 12 mmol/L (10-20); BUN (Urea Nitrogen) 36 mg/dL (9.8-20.1); Calc. Creatinine Clearance 76 mL/min (70-130); Calcium 8.2 mg/dL (7.8-10.44); Carbon Dioxide 19 mmol/L (23-31); Chloride 104 mmol/L (98-107); Glucose 122 mg/dL (80-115); Potassium 4.4 mmol/L (3.5-5.1); Sodium 131 mmol/L (136-145)
[2024-12-13] MEDS ORDERED: Lidocaine 1% PF 5 ML VIAL ONE (11:27)
[2024-12-13] MEDS ORDERED: Sodium Bicarbonate 2.5 MEQ/5 ML SDV ONE (11:28)
[2024-12-13] MEDS: Albumin 25% 25 GM (100 mL) BOT IVPB SCH (14:01)
[2024-12-13 15:25] LABS: RBC Count-Automated (BF) 2657 /cu.mm; WBC/Nucleated-Auto (BF) 127 /cu.mm
[2024-12-13 16:07] LABS: BF Segmented Neutrophils 53 %; Cell Count Non Hematic 37 %
[2024-12-14 08:29] LABS: ALT (SGPT) 44 U/L (Less than 34); AST (SGOT) 42 U/L (11-34); Albumin 4.3 g/dL (3.1-4.5); Alkaline Phosphatase 578 U/L (40-110); Anion Gap 12 mmol/L (10-20); BUN (Urea Nitrogen) 35 mg/dL (9.8-20.1); Bilirubin, Total 5.5 mg/dL (0.3-1.2); Calc. Creatinine Clearance 70 mL/min (70-130); Calcium 8.7 mg/dL (7.8-10.44); Carbon Dioxide 21 mmol/L (23-31); Chloride 104 mmol/L (98-107); Globulin 1.3 g/dL (2.4-3.5); Glucose 165 mg/dL (80-115); Potassium 4.4 mmol/L (3.5-5.1); Sodium 133 mmol/L (136-145)
[2024-12-14 08:34] LABS: #Basophils 0.07 10x3/uL (0.0-0.2); #Eosinophils 0.06 10x3/uL (0.0-0.7); #Monocytes 0.78 10x3/uL (0.11-0.59); #Neutrophils 7.22 10x3/uL (1.40-6.50); %Basophils 0.8 % (0.0-1.0); %Eosinophils 0.7 % (0.0-10.0); %Lymphocytes 5.9 % (21.0-51.0); %Monocytes 9.0 % (0.0-10.0); %Neutrophils 82.8 % (42.0-75.0); Hematocrit 25.0 % (36.0-47.0); Hemoglobin 8.2 g/dL (12.0-16.0); Mean Corpuscular Hemoglobin 36.1 pg (27.0-31.0); Mean Corpuscular Volume 110.1 fL (78.0-98.0); Platelet Count 109 10x3/uL (130-400); Red Blood Cell (RBC) Count 2.27 mill/uL (4.20-5.40); White Blood Cell (WBC) Count 8.71 10x3/uL (4.8-10.8)
[2024-12-14 10:43] LABS: Anisocytosis MODERATE=16-30 cells HPF (0-5); Burr Cells SLIGHT = 2-5 cells HPF (0-1); Macrocytosis SLIGHT = 6-15 cells HPF (0-5); Platelet Adequacy Comment Platelets Decreased; Polychromasia SLIGHT = 2-3 cells HPF (0-2)
[2024-12-14 13:50] VITALS: BP 92/55; TEMP 97.9
== END 2024-12-14 13:16 | disposition home or self-care (01) | DRG 432 ==
LOC: ERS 09:05 → 2NO 12:30 → OBSVTOIN 12-08 10:52 → MSONC 12-08 16:37
PROVIDERS: ADMIT Internal Medicine; ATTEND Hospitalist
PROC: 30233N1 Transfusion of Nonautologous Red Blood Cells into Peripheral Vein, Percutaneous Approach (ICD-10-PCS; 2024-12-07)
PROC: 0W9G3ZZ Drainage of Peritoneal Cavity, Percutaneous Approach (ICD-10-PCS; principal; 2024-12-09)
PROC: 30233J1 Transfusion of Nonautologous Serum Albumin into Peripheral Vein, Percutaneous Approach (ICD-10-PCS; 2024-12-09)
PROC: 3E03329 Introduction of Other Anti-infective into Peripheral Vein, Percutaneous Approach (ICD-10-PCS; 2024-12-09)
PROC: 5A09357 Assistance with Respiratory Ventilation, Less than 24 Consecutive Hours, Continuous Positive Airway Pressure (ICD-10-PCS; 2024-12-11)
PROC: 0W9G3ZZ Drainage of Peritoneal Cavity, Percutaneous Approach (ICD-10-PCS; 2024-12-13)
DX: K74.60 Unspecified cirrhosis of liver (principal); D61.810 Antineoplastic chemotherapy induced pancytopenia; K65.2 Spontaneous bacterial peritonitis; E22.2 Syndrome of inappropriate secretion of antidiuretic hormone; C78.7 Secondary malignant neoplasm of liver and intrahepatic bile duct; R18.8 Other ascites; C79.51 Secondary malignant neoplasm of bone; N17.9 Acute kidney failure, unspecified; Z68.1 Body mass index [BMI] 19.9 or less, adult; E87.20 Acidosis, unspecified; E87.5 Hyperkalemia; E86.0 Dehydration; M62.84 Sarcopenia; E83.41 Hypermagnesemia; E88.09 Other disorders of plasma-protein metabolism, not elsewhere classified; K76.0 Fatty (change of) liver, not elsewhere classified; D63.0 Anemia in neoplastic disease; Z98.890 Other specified postprocedural states; Z90.13 Acquired absence of bilateral breasts and nipples; Z79.899 Other long term (current) drug therapy; E86.9 Volume depletion, unspecified; K72.10 Chronic hepatic failure without coma; R63.4 Abnormal weight loss; T45.1X5A Adverse effect of antineoplastic and immunosuppressive drugs, initial encounter; C50.912 Malignant neoplasm of unspecified site of left female breast
CPT/HCPCS: 36415; 36430; 49083; 74183; 80048; 80053; 82040; 82042; 82140; 83735; 83880; 83930; 83935; 84157; 84295; 84300; 84560; 85025; 85060; 85610; 86850; 86900; 86901; 86922; 87070; 87077; 87205; 88112; 88305; 88341; 88342; 89051; 93005; 93306; 96374; G0378; J0696; J2916; J7050; P9016; P9047

== ENCOUNTER 2024-12-16 13:03 | Inpatient (IN) | payer MEDICARE, OTHER ==
[~2024-12-16 13:03] MED LIST changes: +Iopamidol-370 76% 500 ML MDV (1 ML CHARGE) ONE; -Lidocaine 1% w/Epinephrine 1:100K 20 ML VIAL ONE; -Sodium Bicarbonate 2.5 MEQ/5 ML SDV ONE
[2024-12-16 14:20] LABS: #Basophils 0.05 10x3/uL (0.0-0.2); #Eosinophils 0.06 10x3/uL (0.0-0.7); #Monocytes 1.47 10x3/uL (0.11-0.59); #Neutrophils 7.87 10x3/uL (1.40-6.50); %Basophils 0.5 % (0.0-1.0); %Eosinophils 0.6 % (0.0-10.0); %Lymphocytes 6.6 % (21.0-51.0); %Monocytes 14.4 % (0.0-10.0); %Neutrophils 76.9 % (42.0-75.0); Hematocrit 19.8 % (36.0-47.0); Hemoglobin 6.5 g/dL (12.0-16.0); Mean Corpuscular Hemoglobin 36.7 pg (27.0-31.0); Mean Corpuscular Volume 111.9 fL (78.0-98.0); Platelet Count 149 10x3/uL (130-400); Red Blood Cell (RBC) Count 1.77 mill/uL (4.20-5.40); White Blood Cell (WBC) Count 10.22 10x3/uL (4.8-10.8)
[2024-12-16 14:41] LABS: ALT (SGPT) 38 U/L (Less than 34); AST (SGOT) 44 U/L (11-34); Albumin 3.8 g/dL (3.1-4.5); Alkaline Phosphatase 534 U/L (40-110); Anion Gap 13 mmol/L (10-20); BUN (Urea Nitrogen) 67 mg/dL (9.8-20.1); Bilirubin, Total 6.2 mg/dL (0.3-1.2); Calc. Creatinine Clearance 0 mL/min (70-130); Calcium 8.7 mg/dL (7.8-10.44); Carbon Dioxide 19 mmol/L (23-31); Chloride 100 mmol/L (98-107); Globulin 1.4 g/dL (2.4-3.5); Glucose 122 mg/dL (80-115); Magnesium 2.7 mg/dL (1.6-2.6); Potassium 7.0 mmol/L (3.5-5.1); Sodium 125 mmol/L (136-145)
[2024-12-16 15:47] LABS: Anisocytosis MODERATE=16-30 cells HPF (0-5); Burr Cells MODERATE= 6-15 cells HPF (0-1); Macrocytosis SLIGHT = 6-15 cells HPF (0-5); Ovalocytes SLIGHT = 2-5 cells HPF (0-1); Platelet Adequacy Comment Platelets Normal; Polychromasia MODERATE = 3-4 cells HPF (0-2); Schistocytes SLIGHT = 2-5 cells HPF (0-1)
[2024-12-16 16:24] LABS: Anion Gap 12 mmol/L (10-20); BUN (Urea Nitrogen) 66 mg/dL (9.8-20.1); Calc. Creatinine Clearance 0 mL/min (70-130); Calcium 8.4 mg/dL (7.8-10.44); Carbon Dioxide 19 mmol/L (23-31); Chloride 102 mmol/L (98-107); Glucose 162 mg/dL (80-115); Potassium 7.3 mmol/L (3.5-5.1); Sodium 126 mmol/L (136-145)
[2024-12-16] MEDS ORDERED: CALCIUM GLUC 1 GM/NS 50 ML IV Bag ONE (16:30)
[2024-12-16] MEDS ORDERED: Pantoprazole 40 MG VIAL ONE (16:30)
[2024-12-16 17:19] LABS: INR-International Normal Ratio 1.5; PTT 25.2 sec (22.9-36.1); Prothrombin Time 18.5 sec (12.0-14.7)
[2024-12-16] MEDS ORDERED: Dextrose 50% Abboject 50 ML SYRINGE ONE (17:54)
[2024-12-16 18:09] LABS: Bilirubin, Direct 3.6 mg/dL (0.1-0.3); Bilirubin, Total 6.4 mg/dL (0.3-1.2); Iron Binding Capacity, Total 125 mcg/dL (265-497)
[2024-12-16] MEDS ORDERED: Sodium Polystyrene Sulfonate 15 GM (60 mL) BOT ONE (18:21)
[2024-12-16] MEDS ORDERED: LOKELMA 10 GM PACKET PO SCH (18:30)
[2024-12-16 18:44] LABS: Iron 80 ug/dL (50-170); Iron Binding Capacity, Total 109 mcg/dL (265-497); Transferrin, Serum 87 mg/dL (173-360)
[2024-12-16] MEDS: Pantoprazole 40 MG VIAL IVP SCH (22:46)
[2024-12-16] MEDS: Sodium Bicarbonate Tab 325 MG TAB PO SCH (23:08)
[2024-12-16] MEDS: cefTRIAXone\\ROCEPHIN 1 GM in Sodium Chloride 0.9% 100 ML IVPB SCH (23:08)
[2024-12-16 23:25] LABS: Hematocrit 23.3 % (36.0-47.0); Hemoglobin 7.7 g/dL (12.0-16.0)
[2024-12-16 23:40] LABS: Anion Gap 13 mmol/L (10-20); BUN (Urea Nitrogen) 62 mg/dL (9.8-20.1); Calc. Creatinine Clearance 23 mL/min (70-130); Calcium 8.4 mg/dL (7.8-10.44); Carbon Dioxide 16 mmol/L (23-31); Chloride 105 mmol/L (98-107); Glucose 192 mg/dL (80-115); Potassium 4.8 mmol/L (3.5-5.1); Sodium 129 mmol/L (136-145)
[2024-12-17] MEDS: Octreotide Acetate 1,250 MCG in Sodium Chloride 0.9% 250 ML 250 ML IVPB SCH (00:12)
[2024-12-17 04:19] LABS: #Basophils 0.05 10x3/uL (0.0-0.2); #Eosinophils 0.12 10x3/uL (0.0-0.7); #Monocytes 1.07 10x3/uL (0.11-0.59); #Neutrophils 7.83 10x3/uL (1.40-6.50); %Basophils 0.5 % (0.0-1.0); %Eosinophils 1.2 % (0.0-10.0); %Lymphocytes 8.2 % (21.0-51.0); %Monocytes 10.7 % (0.0-10.0); %Neutrophils 78.1 % (42.0-75.0); Hematocrit 21.5 % (36.0-47.0); Hemoglobin 7.1 g/dL (12.0-16.0); Mean Corpuscular Hemoglobin 35.3 pg (27.0-31.0); Mean Corpuscular Volume 107.0 fL (78.0-98.0); Platelet Count 140 10x3/uL (130-400); Red Blood Cell (RBC) Count 2.01 mill/uL (4.20-5.40); White Blood Cell (WBC) Count 10.02 10x3/uL (4.8-10.8)
[2024-12-17 04:38] LABS: ALT (SGPT) 44 U/L (Less than 34); AST (SGOT) 66 U/L (11-34); Albumin 3.1 g/dL (3.1-4.5); Alkaline Phosphatase 564 U/L (40-110); Anion Gap 11 mmol/L (10-20); BUN (Urea Nitrogen) 62 mg/dL (9.8-20.1); Bilirubin, Total 9.1 mg/dL (0.3-1.2); Calc. Creatinine Clearance 22 mL/min (70-130); Calcium 8.1 mg/dL (7.8-10.44); Carbon Dioxide 20 mmol/L (23-31); Chloride 102 mmol/L (98-107); Globulin 1.4 g/dL (2.4-3.5); Glucose 185 mg/dL (80-115); Magnesium 2.3 mg/dL (1.6-2.6); Potassium 4.8 mmol/L (3.5-5.1); Sodium 128 mmol/L (136-145)
[2024-12-17 08:05] VITALS: BMI 16.9
[2024-12-17] MEDS ORDERED: PROPOFOL 20 ML ONE (08:45)
[2024-12-17] MEDS ORDERED: Ketamine In 0.9 % NaCl 50 MG/5 ML SYRINGE ONE (09:15)
[2024-12-17] MEDS: Albumin 25% 25 GM (100 mL) BOT IVPB SCH ×2 (09:30→16:49)
[2024-12-17 11:05] LABS: Hematocrit 27.6 % (36.0-47.0); Hemoglobin 9.2 g/dL (12.0-16.0)
[2024-12-17 14:08] VITALS: BMI 16.9
[2024-12-17] MEDS: Ondansetron PF 4 MG/2 ML Vial IVP PRN (16:52)
[2024-12-17] MEDS: PNEUMOC 20-VAL CONJ-DIP CRM/PF 0.5 ML SYRINGE IM ONE (17:10)
[2024-12-17] MEDS: Pantoprazole 40 MG VIAL IVP SCH (21:22)
[2024-12-17] MEDS: cefTRIAXone\\ROCEPHIN 1 GM in Sodium Chloride 0.9% 100 ML IVPB SCH (21:23)
[2024-12-18 08:11] LABS: ALT (SGPT) 30 U/L (Less than 34); AST (SGOT) 37 U/L (11-34); Albumin 3.4 g/dL (3.1-4.5); Alkaline Phosphatase 377 U/L (40-110); Anion Gap 13 mmol/L (10-20); BUN (Urea Nitrogen) 48 mg/dL (9.8-20.1); Bilirubin, Total 8.7 mg/dL (0.3-1.2); Calc. Creatinine Clearance 59 mL/min (70-130); Calcium 8.1 mg/dL (7.8-10.44); Carbon Dioxide 19 mmol/L (23-31); Chloride 104 mmol/L (98-107); Globulin 1.5 g/dL (2.4-3.5); Glucose 129 mg/dL (80-115); Potassium 4.3 mmol/L (3.5-5.1); Sodium 132 mmol/L (136-145)
[2024-12-18 08:19] LABS: Anisocytosis MARKED = >30 cells HPF (0-5); Burr Cells MODERATE= 6-15 cells HPF (0-1); Macrocytosis MODERATE=16-30 cells HPF (0-5); Ovalocytes SLIGHT = 2-5 cells HPF (0-1); Platelet Adequacy Comment Platelets Normal; Poikilocytosis SLIGHT = 6-15 cells HPF (0-5); Polychromasia SLIGHT = 2-3 cells HPF (0-2)
[2024-12-18 08:21] LABS: #Basophils 0.07 10x3/uL (0.0-0.2); #Eosinophils 0.21 10x3/uL (0.0-0.7); #Monocytes 1.06 10x3/uL (0.11-0.59); #Neutrophils 10.01 10x3/uL (1.40-6.50); %Basophils 0.6 % (0.0-1.0); %Eosinophils 1.7 % (0.0-10.0); %Lymphocytes 6.7 % (21.0-51.0); %Monocytes 8.6 % (0.0-10.0); %Neutrophils 81.2 % (42.0-75.0); Hematocrit 25.9 % (36.0-47.0); Hemoglobin 8.7 g/dL (12.0-16.0); Mean Corpuscular Hemoglobin 33.2 pg (27.0-31.0); Mean Corpuscular Volume 98.9 fL (78.0-98.0); Platelet Count 124 10x3/uL (130-400); Red Blood Cell (RBC) Count 2.62 mill/uL (4.20-5.40); White Blood Cell (WBC) Count 12.33 10x3/uL (4.8-10.8)
[2024-12-19 04:18] LABS: #Basophils 0.09 10x3/uL (0.0-0.2); #Eosinophils 0.23 10x3/uL (0.0-0.7); #Monocytes 1.17 10x3/uL (0.11-0.59); #Neutrophils 8.90 10x3/uL (1.40-6.50); %Basophils 0.8 % (0.0-1.0); %Eosinophils 2.0 % (0.0-10.0); %Lymphocytes 6.4 % (21.0-51.0); %Monocytes 10.4 % (0.0-10.0); %Neutrophils 79.3 % (42.0-75.0); Hematocrit 28.9 % (36.0-47.0); Hemoglobin 9.5 g/dL (12.0-16.0); Mean Corpuscular Hemoglobin 32.9 pg (27.0-31.0); Mean Corpuscular Volume 100.0 fL (78.0-98.0); Platelet Count 142 10x3/uL (130-400); Red Blood Cell (RBC) Count 2.89 mill/uL (4.20-5.40); White Blood Cell (WBC) Count 11.23 10x3/uL (4.8-10.8)
[2024-12-19 04:34] LABS: ALT (SGPT) 25 U/L (Less than 34); AST (SGOT) 21 U/L (11-34); Albumin 3.1 g/dL (3.1-4.5); Alkaline Phosphatase 355 U/L (40-110); Anion Gap 11 mmol/L (10-20); BUN (Urea Nitrogen) 46 mg/dL (9.8-20.1); Bilirubin, Total 6.6 mg/dL (0.3-1.2); Calc. Creatinine Clearance 55 mL/min (70-130); Calcium 8.1 mg/dL (7.8-10.44); Carbon Dioxide 21 mmol/L (23-31); Chloride 103 mmol/L (98-107); Globulin 1.7 g/dL (2.4-3.5); Glucose 133 mg/dL (80-115); Potassium 4.0 mmol/L (3.5-5.1); Sodium 131 mmol/L (136-145)
[2024-12-19] MEDS: Phenol 177 ML BOT PO PRN (16:57)
[2024-12-20 05:00] LABS: #Basophils 0.08 10x3/uL (0.0-0.2); #Eosinophils 0.25 10x3/uL (0.0-0.7); #Monocytes 1.34 10x3/uL (0.11-0.59); #Neutrophils 8.69 10x3/uL (1.40-6.50); %Basophils 0.7 % (0.0-1.0); %Eosinophils 2.2 % (0.0-10.0); %Lymphocytes 6.9 % (21.0-51.0); %Monocytes 11.9 % (0.0-10.0); %Neutrophils 77.0 % (42.0-75.0); Hematocrit 30.3 % (36.0-47.0); Hemoglobin 9.8 g/dL (12.0-16.0); Mean Corpuscular Hemoglobin 33.4 pg (27.0-31.0); Mean Corpuscular Volume 103.4 fL (78.0-98.0); Platelet Count 165 10x3/uL (130-400); Red Blood Cell (RBC) Count 2.93 mill/uL (4.20-5.40); White Blood Cell (WBC) Count 11.29 10x3/uL (4.8-10.8)
[2024-12-20 05:09] LABS: ALT (SGPT) 21 U/L (Less than 34); AST (SGOT) 23 U/L (11-34); Albumin 3.0 g/dL (3.1-4.5); Alkaline Phosphatase 384 U/L (40-110); Anion Gap 13 mmol/L (10-20); BUN (Urea Nitrogen) 44 mg/dL (9.8-20.1); Bilirubin, Total 6.0 mg/dL (0.3-1.2); Calc. Creatinine Clearance 58 mL/min (70-130); Calcium 7.9 mg/dL (7.8-10.44); Carbon Dioxide 20 mmol/L (23-31); Chloride 103 mmol/L (98-107); Globulin 1.8 g/dL (2.4-3.5); Glucose 124 mg/dL (80-115); Potassium 4.4 mmol/L (3.5-5.1); Sodium 132 mmol/L (136-145)
[2024-12-20] MEDS: Pantoprazole 40 MG DR.TAB PO SCH (09:17)
[2024-12-20] MEDS ORDERED: Lidocaine 1% PF 5 ML VIAL ONE (10:41)
[2024-12-20] MEDS ORDERED: Lidocaine 1% w/Epinephrine 1:100K 20 ML VIAL ONE (10:42)
[2024-12-20] MEDS ORDERED: Sodium Bicarbonate 2.5 MEQ/5 ML SDV ONE (10:42)
[2024-12-21] MEDS: Nadolol 40 MG TAB PO SCH (09:19)
[2024-12-21] MEDS ORDERED: Senokot S 8.6-50 MG TAB PO PRN (14:36)
[2024-12-21] MEDS: cefTRIAXone (ROCEPHIN) 1 GM VIAL ONE (21:29)
[2024-12-23 04:42] LABS: #Basophils 0.10 10x3/uL (0.0-0.2); #Eosinophils 0.27 10x3/uL (0.0-0.7); #Monocytes 1.39 10x3/uL (0.11-0.59); #Neutrophils 8.51 10x3/uL (1.40-6.50); %Basophils 0.9 % (0.0-1.0); %Eosinophils 2.4 % (0.0-10.0); %Lymphocytes 8.0 % (21.0-51.0); %Monocytes 12.2 % (0.0-10.0); %Neutrophils 74.5 % (42.0-75.0); Hematocrit 32.1 % (36.0-47.0); Hemoglobin 10.4 g/dL (12.0-16.0); Mean Corpuscular Hemoglobin 33.9 pg (27.0-31.0); Mean Corpuscular Volume 104.6 fL (78.0-98.0); Platelet Count 311 10x3/uL (130-400); Red Blood Cell (RBC) Count 3.07 mill/uL (4.20-5.40); White Blood Cell (WBC) Count 11.41 10x3/uL (4.8-10.8)
[2024-12-23 04:53] LABS: Anion Gap 12 mmol/L (10-20); BUN (Urea Nitrogen) 36 mg/dL (9.8-20.1); Calc. Creatinine Clearance 46 mL/min (70-130); Calcium 7.7 mg/dL (7.8-10.44); Carbon Dioxide 20 mmol/L (23-31); Chloride 101 mmol/L (98-107); Glucose 148 mg/dL (80-115); Potassium 5.0 mmol/L (3.5-5.1); Sodium 128 mmol/L (136-145)
[2024-12-23] MEDS ORDERED: Lidocaine 1% PF 5 ML VIAL ONE (09:20)
[2024-12-23] MEDS ORDERED: Sodium Bicarbonate 2.5 MEQ/5 ML SDV ONE (09:21)
[2024-12-23] MEDS ORDERED: Lidocaine-Prilocaine 2.5% Cream 5 GM TUBE ONE (09:23)
[2024-12-23 11:35] LABS: RBC Count-Automated (BF) 0 /cu.mm; WBC/Nucleated-Auto (BF) 206 /cu.mm
[2024-12-23 14:05] LABS: BF Segmented Neutrophils 14 %; Cell Count Non Hematic 68 %
[2024-12-28 04:47] LABS: Anion Gap 12 mmol/L (10-20); Anisocytosis SLIGHT = 6-15 cells HPF (0-5); BUN (Urea Nitrogen) 36 mg/dL (9.8-20.1); Calc. Creatinine Clearance 38 mL/min (70-130); Calcium 8.4 mg/dL (7.8-10.44); Carbon Dioxide 20 mmol/L (23-31); Chloride 97 mmol/L (98-107); Glucose 140 mg/dL (80-115); Macrocytosis SLIGHT = 6-15 cells HPF (0-5); Platelet Adequacy Comment Platelets Normal; Polychromasia SLIGHT = 2-3 cells HPF (0-2); Potassium 5.6 mmol/L (3.5-5.1); Sodium 123 mmol/L (136-145)
[2024-12-28 04:49] LABS: Hematocrit 30.4 % (36.0-47.0); Hemoglobin 10.3 g/dL (12.0-16.0); Mean Corpuscular Hemoglobin 34.7 pg (27.0-31.0); Mean Corpuscular Volume 102.4 fL (78.0-98.0); Platelet Count 355 10x3/uL (130-400); Red Blood Cell (RBC) Count 2.97 mill/uL (4.20-5.40); White Blood Cell (WBC) Count 16.99 10x3/uL (4.8-10.8)
[2024-12-28] MEDS ORDERED: Lidocaine 1% PF 5 ML VIAL ONE (10:02)
[2024-12-28] MEDS ORDERED: Lidocaine 1% w/Epinephrine 1:100K 20 ML VIAL ONE (10:02)
[2024-12-28] MEDS ORDERED: Sodium Bicarbonate 2.5 MEQ/5 ML SDV ONE (10:02)
[2024-12-28] MEDS ORDERED: Ondansetron PF 4 MG/2 ML Vial ONE (10:28)
[2024-12-28] MEDS: LOKELMA 10 GM PACKET PO SCH (12:54)
[2024-12-28] MEDS: Ciprofloxacin Lactate/D5W 400 MG in Premix 1 BAG IVPB SCH (13:02)
[2024-12-28 13:19] VITALS: TEMP 97.8
[2024-12-28 14:03] LABS: Potassium 5.6 mmol/L (3.5-5.1)
[2024-12-28 17:13] VITALS: BP 99/65
[2024-12-29] MEDS ORDERED: LOKELMA 5 GM PACKET PO SCH (09:00)
== END 2024-12-28 18:45 | disposition hospice, home (50) | DRG 377 ==
LOC: ERS 13:03 → PCU 18:27
PROVIDERS: ADMIT Student in an Organized Health Care Education/Training Program; ATTEND Hospitalist
PROC: 30233N1 Transfusion of Nonautologous Red Blood Cells into Peripheral Vein, Percutaneous Approach (ICD-10-PCS; 2024-12-16)
PROC: 06L38CZ Occlusion of Esophageal Vein with Extraluminal Device, Via Natural or Artificial Opening Endoscopic (ICD-10-PCS; principal; 2024-12-17)
PROC: 3E03329 Introduction of Other Anti-infective into Peripheral Vein, Percutaneous Approach (ICD-10-PCS; 2024-12-17)
PROC: 30233J1 Transfusion of Nonautologous Serum Albumin into Peripheral Vein, Percutaneous Approach (ICD-10-PCS; 2024-12-17)
PROC: 3E0234Z Introduction of Serum, Toxoid and Vaccine into Muscle, Percutaneous Approach (ICD-10-PCS; 2024-12-17)
PROC: 0W9G3ZZ Drainage of Peritoneal Cavity, Percutaneous Approach (ICD-10-PCS; 2024-12-20)
PROC: 0W9G3ZZ Drainage of Peritoneal Cavity, Percutaneous Approach (ICD-10-PCS; 2024-12-23)
PROC: 0W9G30Z Drainage of Peritoneal Cavity with Drainage Device, Percutaneous Approach (ICD-10-PCS; 2024-12-28)
DX: K92.2 Gastrointestinal hemorrhage, unspecified (principal); E43 Unspecified severe protein-calorie malnutrition; C78.7 Secondary malignant neoplasm of liver and intrahepatic bile duct; E22.2 Syndrome of inappropriate secretion of antidiuretic hormone; E87.20 Acidosis, unspecified; E87.3 Alkalosis; R18.8 Other ascites; C79.51 Secondary malignant neoplasm of bone; K76.6 Portal hypertension; Z68.1 Body mass index [BMI] 19.9 or less, adult; R64 Cachexia; Z66 Do not resuscitate; Z23 Encounter for immunization; I85.10 Secondary esophageal varices without bleeding; E87.5 Hyperkalemia; K74.60 Unspecified cirrhosis of liver; I95.9 Hypotension, unspecified; C50.911 Malignant neoplasm of unspecified site of right female breast; D63.0 Anemia in neoplastic disease; M62.50 Muscle wasting and atrophy, not elsewhere classified, unspecified site; K31.89 Other diseases of stomach and duodenum; Z90.11 Acquired absence of right breast and nipple; Z79.899 Other long term (current) drug therapy; Z98.890 Other specified postprocedural states; Z90.12 Acquired absence of left breast and nipple; Z83.3 Family history of diabetes mellitus; Z82.49 Family history of ischemic heart disease and other diseases of the circulatory system
CPT/HCPCS: 36000; 36415; 36416; 36430; 49083; 49407; 71045; 71275; 74174; 80048; 80053; 82042; 82247; 82728; 83540; 83550; 83605; 83615; 83735; 83880; 84100; 84157; 84311; 84466; 84484; 85025; 85060; 85610; 85730; 86850; 86900; 86901; 86922; 87040; 87070; 87205; 88112; 88305; 89051; 93005; 94760; 96361; 96365; 96375; C1769; J0613; J0696; J0744; J1815; J2250; J2354; J2405; J2470; J2704; J3010; J3490; J7030; J7050; J7999; P9016; P9047; Q0162; Q0167; Q9967